=== PATIENT | female | born 1945 | race Caucasian/White ===

== ENCOUNTER 2017-07-21 20:50 | Emergency (ER) | payer MEDICARE, OTHER ==
--- NOTE | 2017-07-21 21:04 | EDM.PDOC ---
ED HPI GENERAL MEDICAL PROBLEM - General Chief Complaint: Neuro Symptoms/Deficits Stated Complaint: STROKE SYMPTOMS Time Seen by Provider: 07/21/17 20:51 Source of Information: Reports: Patient, Family () History Limitations: Reports: No Limitations - History of Present Illness INITIAL COMMENTS - FREE TEXT/NARRATIVE: The patient states that she woke this morning with right facial, left upper extremity and right lower extremity weakness, along with lightheadedness, although the lightheadedness is only when the patient is upright. The patient is adamant that her sensation is not vertigo. The patient's last known normal would have been when she went to bed last night. She denies having a headache or blurry vision. She states that she chronically has nausea, and is also reporting a sore stomach today. She reports diaphoresis for the past month, for reasons unclear. No recent fever, constipation, or diarrhea. No recent chest pain, dyspnea, or palpitations. No prior similar symptoms. The patient's PCP is Dr. Valenzuela. - Related Data Allergies Allergy/AdvReac Type Severity Reaction Status Date / Time No Known Allergies Allergy Verified 07/21/17 20:58 Home Meds: Home Meds Aspirin [Ecotrin] 81 mg PO DAILY 07/21/17 [History] Atenolol 25 mg PO BID 07/21/17 [History] Citalopram [Citalopram HBr] 10 mg PO DAILY 07/21/17 [History] Doxazosin [Cardura] 2 mg PO DAILY 07/21/17 [History] Hydrochlorothiazide 12.5 mg PO DAILY 07/21/17 [History] Losartan [Cozaar] 100 mg PO DAILY 07/21/17 [History] Omeprazole 20 mg PO DAILY 07/21/17 [History] Pravastatin [Pravachol] 40 mg PO BEDTIME 07/21/17 [History] Past Medical History Cardiovascular History: Reports: High Cholesterol, Hypertension Gastrointestinal History: Reports: GERD Musculoskeletal History: Reports: Back Pain, Chronic, Osteoarthritis Neurological History: Reports: Headaches, Chronic Psychiatric History: Reports: Anxiety, Depression - Past Surgical History GI Surgical History: Reports: Appendectomy Female Surgical History: Reports: Hysterectomy, Salpingo-Oophorectomy Neurological Surgical History: Reports: Lumbar Spine (laminectomy) Musculoskeletal Surgical History: Reports: Hip Replacement (right), Other (See Below) (Bilateral great toe fusion) Social & Family History - Tobacco Use Smoking Status *Q: Former Smoker - Alcohol Use Alcohol Use History: No - Recreational Drug Use Recreational Drug Use: No - Living Situation & Occupation Living situation: Reports: , with Spouse Occupation: Retired ED ROS GENERAL - Review of Systems Review Of Systems: ROS reveals no pertinent complaints other than HPI. ED EXAM, GENERAL - Physical Exam Exam: See Below Exam Limited By: No Limitations General Appearance: Alert, WD/WN, No Apparent Distress Eye Exam: Bilateral Eye: EOMI, Normal Inspection, PERRL Ears: Normal External Exam, Hearing Grossly Normal Nose: Normal Inspection, No Blood Throat/Mouth: Normal Inspection, Normal Lips, Normal Voice, No Airway Compromise Head: Atraumatic, Normocephalic Neck: Normal Inspection, Full Range of Motion Respiratory/Chest: No Respiratory Distress, Lungs Clear, Normal Breath Sounds, No Accessory Muscle Use Cardiovascular: Normal Peripheral Pulses, Regular Rate, Rhythm, No Gallop, No JVD, No Murmur, No Rub Peripheral Pulses: 4+: Radial (L), Radial (R) GI/Abdominal: Normal Bowel Sounds, Soft, Non-Tender, No Organomegaly, No Distention, No Abnormal Bruit, No Mass (Female) Exam: Deferred Rectal (Female) Exam: Deferred Back Exam: Normal Inspection, Full Range of Motion, NT Extremities: Normal Inspection, Normal Range of Motion, No Pedal Edema, Normal Capillary Refill Neurological: Alert, Oriented, CN II-XII Intact, Normal Cognition, No Motor/ Sensory Deficits Psychiatric: Anxious Skin Exam: Warm, Dry, Intact, Normal Color, No Rash EKG INTERPRETATION EKG Date: 07/21/17 Time: 21:04 Rhythm: NSR Rate (Beats/Min): 65 [place]: Normal P-Wave: Present QRS: Normal ST-T: Normal QT: Normal Comparison: NA - No Prior EKG Course - Vital Signs Last Recorded V/S: Last Vital Signs Temp 37.1 C 07/21/17 20:54 Pulse 72 07/21/17 20:54 Resp 18 07/21/17 20:54 BP 219/106 H 07/21/17 20:54 Pulse Ox 96 07/21/17 20:54 Orthostatic Blood Pressure [ 191/100 Standing] Orthostatic Blood Pressure [ 191/98 Sitting] Orthostatic Blood Pressure [ 189/93 Supine] - Orders/Labs/Meds Orders: Active Orders 24 hr Category Date Time Status EKG Documentation Completion [RC] STAT Care 07/21/17 20:57 Active Orthostatic Vital Signs [RC] STAT Care 07/21/17 20:57 Active Head wo Cont [CT] Stat Exams 07/21/17 20:57 Taken Labs: Laboratory Tests 07/21/17 07/21/17 07/21/17 Range/Units 21:04 21:05 21:05 WBC 6.74 (3.98-10.04) K/mm3 RBC 4.76 (3.98-5.22) M/mm3 Hgb 14.0 (11.2-15.7) gm/L Hct 41.4 (34.1-44.9) % MCV 87.0 (79.4-94.8) fl MCH 29.4 (25.6-32.2) pg MCHC 33.8 (32.2-35.5) g/dl RDW Std Deviation 40.7 (36.4-46.3) fL Plt Count 171 L (182-369) K/mm3 MPV 11.8 (9.4-12.3) fl Neutrophils % (Manual) 40 (40-60) % Band Neutrophils % 0 (0-10) % Lymphocytes % (Manual) 54 H (20-40) % Atypical Lymphs % 0 % Monocytes % (Manual) 4 (2-10) % Eosinophils % (Manual) 2 (0.7-5.8) % Basophils % (Manual) 0 L (0.1-1.2) Platelet Estimate Adequate Plt Morphology Comment Normal Anisocytosis 1+ slight RBC Morph Comment Not Reportable Sodium 139 (136-145) mEq/L Potassium 3.9 (3.5-5.1) mEq/L Chloride 103 (98-107) mEq/L Carbon Dioxide 27 (21-32) mEq/L Anion Gap 12.9 (5-15) BUN 16 (7-18) mg/dL Creatinine 1.2 H (0.55-1.02) mg/dL Est Cr Clr Drug Dosing 40.25 mL/min Estimated GFR (MDRD) 44 (>60) mL/min BUN/Creatinine Ratio 13.3 L (14-18) Glucose 134 H (83-115) mg/dL POC Glucose 131 H (83-110) mg/dL Calcium 9.9 (8.5-10.1) mg/dL Magnesium 1.9 (1.8-2.4) mg/dl Total Bilirubin 0.7 (0.2-1.0) mg/dL AST 20 (15-37) U/L ALT 25 (14-59) U/L Alkaline Phosphatase 87 (46-116) U/L Troponin I < 0.017 (0.00-0.056) ng/mL Total Protein 7.1 (6.4-8.2) g/dl Albumin 4.1 (3.4-5.0) g/dl Globulin 3.0 gm/dL Albumin/Globulin Ratio 1.4 (1-2) - Re-Assessments/Exams Free Text/Narrative Re-Assessment/Exam: 07/21/17 21:45 CT of the head without contrast is read by [facility] as: Mild ventricular white matter disease of the brain which likely represents sequelae of chronic small vessel ischemic change. No acute intra-cranial findings. 07/21/17 21:46 The patient is not orthostatic. 07/21/17 22:28 Test results discussed with the patient, her , and her son. The patient states that she is feeling much better, although she believes that her right- sided weakness has improved by only about half. On neurologic exam, I find that the patient is, if anything, stronger on the right than the left. I cannot explain the patient's symptoms. As I do not find any actual neurologic deficit despite the patient feeling that she has one, I do not suspect a TIA, and a CT scan is negative for stroke - it would have been positive by now if the patient had actually suffered a stroke. MS is a potential etiology, although I cannot diagnose MS from the ED. I suspect that the patient's symptoms, which she reports have largely improved since arriving to the ED, may be related to anxiety. The patient's most recent blood pressure is 182/84, well below a cutoff indicating emergent treatment. Departure - Departure Time of Disposition: 22:30 Disposition: Home, Self-Care 01 Condition: Good Clinical Impression: Right sided weakness, Lightheaded - Discharge Information Instructions: Weakness, [id number] Referrals: Maciel Valenzuela MD [Primary Care Provider] - Forms: ED Department Discharge Additional Instructions: You were seen in the emergency room for right facial and right-sided weakness, along with lightheadedness. Workup in the ER included a CT scan of her head, positional blood pressure checks, blood work, and an ECG. Entire workup was unremarkable. You have not suffered a stroke. He has not suffered a heart attack. You are not dehydrated. No electrolyte abnormalities were found. The cause of your symptoms is not clear. If no new symptoms occur, please follow-up with your PCP, Dr. Valenzuela, at your previously scheduled appointment this coming 07/25/2017. If your symptoms recur, or for any other problems, please do not hesitate to return to the ER. - My Orders Last 24 Hours: My Active Orders 07/21/17 20:57 EKG Documentation Completion [RC] STAT Orthostatic Vital Signs [RC] STAT Head wo Cont [CT] Stat - Assessment/Plan Last 24 Hours: My Active Orders 07/21/17 20:57 EKG Documentation Completion [RC] STAT Orthostatic Vital Signs [RC] STAT Head wo Cont [CT] Stat
--- NOTE | 2017-07-24 08:36 | CT ---
Head CT Technique: Multiple axial sections through the brain were obtained. Intravenous contrast was not utilized. Comparison: No previous intracranial imaging. Findings: Ventricles along with basal cisterns and sulci over the convexities are within normal limits for the patient's age. Several old appearing small white matter infarcts are noted within the periventricular white matter. Diminished density also noted within the periventricular white matter compatible with small vessel ischemic demyelination change. No other abnormal parenchymal densities are seen. No evidence of intracranial hemorrhage. No midline shift or mass effect is seen. Mild atherosclerotic calcification is seen within the vertebral vessels and carotid siphon. Bone window settings were reviewed which show mild mucosal thickening within the right sphenoid and right posterior ethmoid sinus which is likely incidental. No acute calvarial abnormality is appreciated. Impression: 1. Senescent change as noted above. No acute intracranial abnormality is identified on noncontrast head CT study. 2. Sinus findings which are felt to be incidental. Diagnostic code #2 I agree with preliminary report issued by [facility] ([facility] preliminary report dictated on 07/21/17, 10:12 PM Central Time)
== END 2017-07-21 22:50 | disposition home or self-care (01) ==
LOC: JD.ED 20:50
DX: R42 Dizziness and giddiness (principal); R29.898 Other symptoms and signs involving the musculoskeletal system; E78.00 Pure hypercholesterolemia, unspecified; I10 Essential (primary) hypertension; Z87.891 Personal history of nicotine dependence; Z79.82 Long term (current) use of aspirin
CPT/HCPCS: 36415; 70450; 70450-26; 80053; 82962; 83735; 84484; 85007; 85027; 93005; 93010; 99284; 99285-25

== ENCOUNTER 2017-07-24 10:21 | Emergency (ER) | payer MEDICARE, OTHER ==
[2017-07-24] MEDS ORDERED: Sodium Chloride 0.9% 10 ML Syringe FLUSH PRN (10:34)
[2017-07-24] MEDS ORDERED: Sodium Chloride 0.9% 1,000 ML IV SCH (10:45)
--- NOTE | 2017-07-24 11:41 | CT ---
Head CT Technique: Multiple axial sections through the brain were obtained. Intravenous contrast was not utilized. Comparison: Prior head CT exam of 07/21/17. Findings: Ventricles along with basal cisterns and sulci over the convexities are within normal limits for the patient's age. Several old white matter infarcts are again noted. Diminished density is noted within the periventricular white matter compatible with small vessel ischemic demyelination change. No evidence of intracranial hemorrhage. No midline shift or mass effect is seen. Bone window settings were reviewed which shows no acute calvarial abnormality. Mucosal thickening is seen within the posterior right ethmoid and sphenoid sinus which is stable. Impression: 1. Senescent change and stable sinus findings as noted above. No acute intracranial abnormality is appreciated. No significant change from prior head CT study is seen. Diagnostic code #2
[2017-07-24] MEDS ORDERED: Iopamidol 755 Mg/ML 100 ML Bottle IVPUSH ONE (12:06)
--- NOTE | 2017-07-24 14:05 | EDM.PDOC ---
ED HPI GENERAL MEDICAL PROBLEM - General Chief Complaint: Neuro Symptoms/Deficits Stated Complaint: FULL R SIDE NUMBNESS/UNABLE TO USE Time Seen by Provider: 07/24/17 10:26 Source of Information: Reports: Patient, Family (), RN Notes Reviewed - History of Present Illness INITIAL COMMENTS - FREE TEXT/NARRATIVE: 72-year-old female comes in with speech deficit, right facial droop, right upper and lower extremity weakness. She awakened with these symptoms Monday over 48 hours ago. She initially had symptoms around 10 AM Monday 3 days ago or about 72 hours ago. At that time she did have some slurred speech, right facial droop, right hand and arm weakness that was all relatively mild but according to patient and her still present at time of evaluation to our ED that evening 2-1/2 days ago. She had appropriate labs, EKG and head CT all reported to be normal. Her blood pressure was high initially but did come down. Neuro exam as documented completely normal. She was discharged home to continue on her current blood pressure meds and it appears that she probably already was on baby aspirin. Unfortunately she awakened Monday morning 2 days ago with quite severe facial droop, slurring of her speech and quite severe weakness of her upper and lower extremities. Unable to walk without assistance from her . No meaningful use of her R hand or arm since Monday. Patient states her symptoms have stayed about the same for the past 2 days although her states that symptoms have worsened from Monday. It is unclear why they have waited to come in although the does mention that they were told everything was okay Monday evening so apparently based on that information did not feel a strong need to come in Monday or even yesterday. Because symptoms have not been improving they do come in this morning. Of note looking at discharge instructions of Monday there was a statement "if your symptoms recur or for any other problems do not hesitate to return to the ER." She does have history of hypertension and has been on meds for hypertension for some time. She does not smoke. She is on a statin. She is not diabetic. No prior history of stroke or TIA. - Related Data Allergies Allergy/AdvReac Type Severity Reaction Status Date / Time No Known Allergies Allergy Verified 07/21/17 20:58 Home Meds: Home Meds Aspirin [Ecotrin] 81 mg PO DAILY 07/21/17 [History] Atenolol 25 mg PO BID 07/21/17 [History] Citalopram [Citalopram HBr] 10 mg PO DAILY 07/21/17 [History] Doxazosin [Cardura] 2 mg PO DAILY 07/21/17 [History] Losartan [Cozaar] 100 mg PO DAILY 07/21/17 [History] Omeprazole 20 mg PO DAILY 07/21/17 [History] Pravastatin [Pravachol] 40 mg PO BEDTIME 07/21/17 [History] Past Medical History Cardiovascular History: Reports: High Cholesterol, Hypertension Gastrointestinal History: Reports: GERD Musculoskeletal History: Reports: Back Pain, Chronic, Osteoarthritis Neurological History: Reports: Headaches, Chronic Psychiatric History: Reports: Anxiety, Depression - Past Surgical History GI Surgical History: Reports: Appendectomy Female Surgical History: Reports: Hysterectomy, Salpingo-Oophorectomy Neurological Surgical History: Reports: Lumbar Spine Musculoskeletal Surgical History: Reports: Hip Replacement, Other (See Below) Social & Family History - Tobacco Use Smoking Status *Q: Never Smoker - Caffeine Use Caffeine Use: Reports: Coffee - Living Situation & Occupation Living situation: Reports: , with Spouse Occupation: Retired ED ROS GENERAL - Review of Systems Review Of Systems: See Below Constitutional: Denies: Fever, Chills, Diaphoresis HEENT: Reports: Other (She was having nonspecific dizziness Monday evening which has persisted.). Denies: Throat Pain, Vision Change Respiratory: Denies: Shortness of Breath, Pleuritic Chest Pain Cardiovascular: Denies: Chest Pain, Palpitations GI/Abdominal: Denies: Abdominal Pain, Nausea, Vomiting Musculoskeletal: Denies: Neck Pain, Shoulder Pain, Arm Pain Skin: Reports: No Symptoms Neurological: Reports: Dizziness, Headache (Chronic), Numbness, Tingling, Trouble Speaking (Slurred speech), Difficulty Walking, Weakness, Change in Speech ED EXAM, NEURO - Physical Exam Exam: See Below General Appearance: Alert, Mild Distress Eye Exam: Bilateral Eye: PERRL Throat/Mouth: Other (She does have moderate right facial droop) Head Exam: Atraumatic. No: Facial Swelling Neck: Supple, Full Range of Motion Respiratory/Chest: No Respiratory Distress, Lungs Clear, Normal Breath Sounds Cardiovascular: Regular Rate, Rhythm GI/Abdominal: Soft, Non-Tender Neurological: Alert, Other (Moderate weakness right upper and lower extremity, moderate hand grasp weakness, difficult to raise hand and arm off the clot but she can lift it off the cot against gravity for a few seconds, unable to maintain. She is able to lift her right leg off of the cot a few inches for a few seconds but again unable to maintain. She has moderate right facial droop, slurred speech but speech appropriate, no expressive aphasia.) Extremities: Normal Inspection. No: Leg Pain, Increased Warmth, Redness Skin Exam: Warm, Dry, Normal Color EKG INTERPRETATION EKG Date: 07/24/17 Rhythm: NSR Rate (Beats/Min): 66 [place]: Normal P-Wave: Present QRS: Normal ST-T: Normal Course - Vital Signs Last Recorded V/S: Last Vital Signs Temp 97.0 F 07/24/17 10:26 Pulse 70 07/24/17 10:26 Resp 18 07/24/17 10:26 BP 192/97 H 07/24/17 10:26 Pulse Ox 95 07/24/17 10:26 - Orders/Labs/Meds Orders: Active Orders 24 hr Category Date Time Status EKG 12 Lead [EKG Documentation Completion] [RC] STAT Care 07/24/17 10:34 Active Peripheral IV Care [RC] . DIRECTED Care 07/24/17 10:35 Active Ang Head [CT] Stat Exams 07/24/17 10:45 Taken Ang Neck [CT] Stat Exams 07/24/17 10:35 Taken Sodium Chloride 0.9% [Normal Saline] 1,000 ml Med 07/24/17 10:45 Active IV ASDIRECTED Sodium Chloride 0.9% [Saline Flush] Med 07/24/17 10:34 Active 10 ml FLUSH ASDIRECTED PRN Peripheral IV Insertion Pediatric [OM.PC] Routine Oth 07/24/17 10:34 Ordered Medication Orders Sodium Chloride (Normal Saline) 1,000 mls @ 150 mls/hr IV ASDIRECTED LUPE Last Admin: 07/24/17 10:47 Dose: 150 mls/hr Sodium Chloride (Saline Flush) 10 ml FLUSH ASDIRECTED PRN PRN Reason: Keep Vein Open Last Admin: 07/24/17 10:48 Dose: 10 ml Labs: Laboratory Tests 07/24/17 07/24/17 07/24/17 Range/Units 10:38 10:38 10:38 WBC 6.64 (3.98-10.04) K/mm3 RBC 4.94 (3.98-5.22) M/mm3 Hgb 14.5 (11.2-15.7) gm/L Hct 42.8 (34.1-44.9) % MCV 86.6 (79.4-94.8) fl MCH 29.4 (25.6-32.2) pg MCHC 33.9 (32.2-35.5) g/dl RDW Std Deviation 41.0 (36.4-46.3) fL Plt Count 169 L (182-369) K/mm3 MPV 12.0 (9.4-12.3) fl Neut % (Auto) 66.3 (34.0-71.1) % Lymph % (Auto) 25.0 (19.3-51.7) % [place] % (Auto) 6.9 (4.7-12.5) % Eos % (Auto) 1.4 (0.7-5.8) Baso % (Auto) 0.2 (0.1-1.2) % Neut # (Auto) 4.41 (1.56-6.13) K/mm3 Lymph # (Auto) 1.66 (1.18-3.74) K/mm3 [place] # (Auto) 0.46 H (0.24-0.36) K/mm3 Eos # (Auto) 0.09 (0.04-0.36) K/mm3 Baso # (Auto) 0.01 (0.01-0.08) K/mm3 PT 10.6 (9.5-12.1) SECONDS INR 0.97 APTT 31 (24-31) SECONDS Sodium 140 (136-145) mEq/L Potassium 3.6 (3.5-5.1) mEq/L Chloride 104 (98-107) mEq/L Carbon Dioxide 23 (21-32) mEq/L Anion Gap 16.6 H (5-15) BUN 16 (7-18) mg/dL Creatinine 1.1 H (0.55-1.02) mg/dL Est Cr Clr Drug Dosing 45.62 mL/min Estimated GFR (MDRD) 49 (>60) mL/min BUN/Creatinine Ratio 14.5 (14-18) Glucose 137 H (83-115) mg/dL POC Glucose (83-110) mg/dL Calcium 9.5 (8.5-10.1) mg/dL Total Bilirubin 0.9 (0.2-1.0) mg/dL AST 11 L (15-37) U/L ALT 22 (14-59) U/L Alkaline Phosphatase 81 (46-116) U/L Total Protein 7.1 (6.4-8.2) g/dl Albumin 4.0 (3.4-5.0) g/dl Globulin 3.1 gm/dL Albumin/Globulin Ratio 1.3 (1-2) 07/24/17 Range/Units 10:42 WBC (3.98-10.04) K/mm3 RBC (3.98-5.22) M/mm3 Hgb (11.2-15.7) gm/L Hct (34.1-44.9) % MCV (79.4-94.8) fl MCH (25.6-32.2) pg MCHC (32.2-35.5) g/dl RDW Std Deviation (36.4-46.3) fL Plt Count (182-369) K/mm3 MPV (9.4-12.3) fl Neut % (Auto) (34.0-71.1) % Lymph % (Auto) (19.3-51.7) % [place] % (Auto) (4.7-12.5) % Eos % (Auto) (0.7-5.8) Baso % (Auto) (0.1-1.2) % Neut # (Auto) (1.56-6.13) K/mm3 Lymph # (Auto) (1.18-3.74) K/mm3 [place] # (Auto) (0.24-0.36) K/mm3 Eos # (Auto) (0.04-0.36) K/mm3 Baso # (Auto) (0.01-0.08) K/mm3 PT (9.5-12.1) SECONDS INR APTT (24-31) SECONDS Sodium (136-145) mEq/L Potassium (3.5-5.1) mEq/L Chloride (98-107) mEq/L Carbon Dioxide (21-32) mEq/L Anion Gap (5-15) BUN (7-18) mg/dL Creatinine (0.55-1.02) mg/dL Est Cr Clr Drug Dosing mL/min Estimated GFR (MDRD) (>60) mL/min BUN/Creatinine Ratio (14-18) Glucose (83-115) mg/dL POC Glucose 122 H (83-110) mg/dL Calcium (8.5-10.1) mg/dL Total Bilirubin (0.2-1.0) mg/dL AST (15-37) U/L ALT (14-59) U/L Alkaline Phosphatase (46-116) U/L Total Protein (6.4-8.2) g/dl Albumin (3.4-5.0) g/dl Globulin gm/dL Albumin/Globulin Ratio (1-2) Meds: Medications Generic Name Dose Route Start Last Admin Trade Name Freq PRN Reason Stop Dose Admin Sodium Chloride 1,000 mls @ 150 mls/hr 07/24/17 10:45 07/24/17 10:47 Normal Saline IV 150 mls/hr ASDIRECTED LUPE Administration Sodium Chloride 10 ml 07/24/17 10:34 07/24/17 10:48 Saline Flush FLUSH 10 ml ASDIRECTED PRN Administration Keep Vein Open Discontinued Medications Generic Name Dose Route Start Last Admin Trade Name Freq PRN Reason Stop Dose Admin Iopamidol 100 ml 07/24/17 12:06 07/24/17 10:30 Isovue-370 (76%) IVPUSH 07/24/17 12:07 100 ml ONETIME ONE Administration - Re-Assessments/Exams Free Text/Narrative Re-Assessment/Exam: 07/24/17 14:[address] was done, Radiologist report of head CT today came back normal, no hemorhage. Based on severity of symptoms CT angiogram of carotids and head was done. This did Not show any vascular lesions or significant stenosis. This did show areas of decreased attenuation left frontal parietal lobe consistent with developing CVA. Etiology reports for details. I discussed this with our Hospitalist, Dr. Bower who did quite strongly suggest higher level of care. I have called [facility], discussed with Neurologist openstack cloud consulting architect, Dr Harman who states based on current symptoms and findings, onset of current symptoms 48 hours ago she is well beyond any interventional window. Therefore no greater advantage of transferring to [facility] versus going to [place]. She states that she does need further neurologic workup including echocardiogram, MRI of head, possible other acute interventions as deemed necessary. With that and options given to patient and her they have chosen to go to [facility]. We will be transferring her by ground ambulance. Dr. Banda, Hospitalist accepting physician. Departure - Departure Time of Disposition: 13:57 Disposition: DC/Tfer to Acute Hospital 02 Condition: Fair Clinical Impression: Cerebrovascular accident (CVA) Qualifiers: CVA mechanism: unspecified Qualified Code(s): I63.9 - Cerebral infarction, unspecified - Discharge Information Referrals: Maciel Valenzuela MD [Primary Care Provider] - - My Orders Last 24 Hours: My Active Orders 07/24/17 10:34 EKG 12 Lead [EKG Documentation Completion] [RC] STAT Sodium Chloride 0.9% [Saline Flush] 10 ml FLUSH ASDIRECTED PRN Peripheral IV Insertion Pediatric [OM.PC] Routine 07/24/17 10:35 Peripheral IV Care [RC] . DIRECTED Ang Neck [CT] Stat 07/24/17 10:45 Ang Head [CT] Stat Sodium Chloride 0.9% [Normal Saline] 1,000 ml IV ASDIRECTED - Assessment/Plan Last 24 Hours: My Active Orders 07/24/17 10:34 EKG 12 Lead [EKG Documentation Completion] [RC] STAT Sodium Chloride 0.9% [Saline Flush] 10 ml FLUSH ASDIRECTED PRN Peripheral IV Insertion Pediatric [OM.PC] Routine 07/24/17 10:35 Peripheral IV Care [RC] . DIRECTED Ang Neck [CT] Stat 07/24/17 10:45 Ang Head [CT] Stat Sodium Chloride 0.9% [Normal Saline] 1,000 ml IV ASDIRECTED
--- NOTE | 2017-07-25 07:19 | CT ---
CT angiogram of brain Technique: Multiple axial sections were obtained through the brain. Intravenous contrast was utilized. Multiple reconstructed images were obtained. Findings: Posterior cerebral arteries are not well seen and uncertain if this is due to atherosclerotic change and narrowing versus technique. Middle cerebral arteries appear to be patent without definite stenosis. Anterior cerebral arteries appear to be patent without definite stenosis. Impression: 1. Posterior cerebral arteries not optimally seen, uncertain if this is due to atherosclerotic change with areas of stenosis or is technical. 2. Other portions of the CT angiogram of the brain appear unremarkable. Given patient's symptoms, MRI and MR angiogram could be obtained to further evaluate. Diagnostic code #2 I agree with preliminary report issued by [facility] ([facility] preliminary report dictated on 07/21/17, 10:12 PM Central Time)
--- NOTE | 2017-07-25 10:07 | CT ---
CT angiogram of neck Technique: Multiple axial sections were obtained through the neck. Intravenous contrast was utilized. Reconstructed surface rendered images were obtained. Findings: Both vertebral arteries are patent into the basilar artery. Common carotid arteries show no stenosis. Mild atheromatous irregularity is seen within the right carotid bulb. No focal stenosis is seen within the internal or proximal external carotid arteries. Impression: 1. Mild atheromatous irregularity within the right carotid bulb. No focal stenosis is seen within the major vessels within the neck. Diagnostic code #2 I agree with preliminary report issued by [facility] ([facility] preliminary report dictated on 07/24/17, 12:41 PM Central Time)
== END 2017-07-24 15:20 ==
LOC: JD.ED 10:21
DX: I63.9 Cerebral infarction, unspecified (principal); I10 Essential (primary) hypertension; E78.00 Pure hypercholesterolemia, unspecified; M19.90 Unspecified osteoarthritis, unspecified site; F41.9 Anxiety disorder, unspecified; F32.9 Major depressive disorder, single episode, unspecified; Z79.82 Long term (current) use of aspirin; Z79.899 Other long term (current) drug therapy
CPT/HCPCS: 36415; 70450; 70496; 70498; 80053; 82962; 85025; 85610; 85730; 93005; 96360; 96361; 99285; J7040; J7050; Q9967; 93010